=== PATIENT | female | born 1975 | race American Indian/Alaskan Native ===

== ENCOUNTER 2016-08-02 10:05 | Emergency (ER) | payer MEDICAID ==
[2016-08-02 10:16] VITALS: BP 141/95
--- NOTE | 2016-08-02 10:50 | Emergency Department Report ---
ED Recheck HPI - General Chief Complaint: Recheck/Abnormal Lab/Rx Stated Complaint: NEED MEDS/BIPOLAR Time Seen by Provider: 08/02/16 10:36 Source: patient Mode of arrival: Ambulatory Limitations: No Limitations - History of Present Illness Initial Comments: Pt recently moved here and ran out of Prolixin last night. Denies any SI, HI, AVH. VEGA Complaint: medication refill request -: Gradual, days(s) Returns Today for: request for prescription Symptoms Since Prior Visit: no new symptoms Context: ran out of medication Associated Symptoms: none - Related Data Home Medications Medication Instructions Recorded Confirmed Last Taken fluPHENAZine HCL [Prolixin] 10 mg PO BID 08/02/16 08/02/16 Unknown Previous Rx's Medication Instructions Recorded Last Taken Type fluPHENAZine HCL [fluPHENAZine] 10 mg PO BID #60 tablet 08/02/16 Unknown Rx Allergies Allergy/AdvReac Type Severity Reaction Status Date / Time No Known Allergies Allergy Unverified 08/02/16 10:11 ED Review of Systems ROS: Stated complaint: NEED MEDS/BIPOLAR Other details as noted in HPI Comment: All other systems reviewed and negative Constitutional: denies: chills, fever Eyes: denies: eye pain, eye discharge, vision change ENT: denies: ear pain, throat pain Respiratory: denies: cough, shortness of breath, wheezing Cardiovascular: denies: chest pain, palpitations Endocrine: no symptoms reported Gastrointestinal: denies: abdominal pain, nausea, diarrhea Genitourinary: denies: urgency, dysuria, discharge Musculoskeletal: denies: back pain, joint swelling, arthralgia Skin: denies: rash, lesions Neurological: denies: headache, weakness, paresthesias Psychiatric: denies: anxiety, depression Hematological/Lymphatic: denies: easy bleeding, easy bruising ED Past Medical Hx - Past Medical History Hx Psychiatric Treatment: Yes (BI POLAR) - Surgical History Past Surgical History?: No - Social History Smoking Status: Current Some Day Smoker - Medications Home Medications: Home Medications Medication Instructions Recorded Confirmed Last Taken Type fluPHENAZine HCL [Prolixin] 10 mg PO BID 08/02/16 08/02/16 Unknown History fluPHENAZine HCL [fluPHENAZine] 10 mg PO BID #60 tablet 08/02/16 Unknown Rx ED Physical Exam - General Limitations: No Limitations General appearance: alert, in no apparent distress - Head Head exam: Present: atraumatic, normocephalic - Eye Eye exam: Present: normal appearance - ENT ENT exam: Present: mucous membranes moist - Neck Neck exam: Present: normal inspection - Respiratory Respiratory exam: Present: normal lung sounds bilaterally. Absent: respiratory distress - Cardiovascular Cardiovascular Exam: Present: regular rate, normal rhythm. Absent: systolic murmur, diastolic murmur, rubs, gallop - GI/Abdominal GI/Abdominal exam: Present: soft, normal bowel sounds - Extremities Exam Extremities exam: Present: normal inspection - Back Exam Back exam: Present: normal inspection - Neurological Exam Neurological exam: Present: alert, oriented X3 - Psychiatric Psychiatric exam: Present: normal affect, normal mood - Skin Skin exam: Present: warm, dry, intact, normal color. Absent: rash ED Course Vital Signs 08/02/16 10:11 Temperature 98.8 F Pulse Rate 93 H Respiratory 20 Rate Blood Pressure 141/95 O2 Sat by Pulse 98 Oximetry - Reevaluation(s) Reevaluation #1: 08/02/16 10:47 NAD, stable for d/c. ED Recheck MDM - Differential Diagnosis Prescription Refill(s) - Medical Decision Making Will refill until she can establish psych care this month. Critical care attestation.: If time is entered above; I have spent that time in minutes in the direct care of this critically ill patient, excluding procedure time. ED Disposition Clinical Impression: Medication refill Disposition: DC-01 TO HOME OR SELFCARE Is pt being admited?: No Condition: Good Instructions: Bipolar Disorder (ED) Prescriptions: fluPHENAZine HCL [fluPHENAZine] 10 mg PO BID #60 tablet Referrals: PRIMARY CAREMD [Primary Care Provider] - 3-5 Days [facility] [Provider Group] - 3-5 Days Time of Disposition: 10:49
== END 2016-08-02 11:19 | disposition home or self-care (01) ==
LOC: ED 10:05
DX: Z76.0 Encounter for issue of repeat prescription (principal); F17.200 Nicotine dependence, unspecified, uncomplicated
CPT/HCPCS: 99282